=== PATIENT | male | born 1995 | race Caucasian/White ===

== ENCOUNTER 2021-02-28 16:54 | Emergency (ER) | payer OTHER ==
[2021-02-28 18:34] LABS: BASOPHIL 0.2 % (0-2); EOSINOPHIL 1.6 % (0-5); HCT 39.5 % (42.0-52.0); HGB 13.7 g/dl (13.2-18.0); LYMPHOCYTE 26.3 % (15-48); MCH 30.7 pg (25.0-31.0); MCHC 34.7 g/dL (32.0-36.0); MCV 88.6 fL (78.0-100.0); MONOCYTE 6.4 % (0-12); MPV 9.4 fL (6.0-9.5); NEUTROPHIL 65.2 % (41-80); NRBC 0; PLT 326 K/uL (150-400); RBC 4.46 M/uL (4.70-6.00); RDW 12.4 % (11.5-14.0); WBC 9.1 K/uL (4.0-10.5)
[2021-02-28 18:44] LABS: INR 1.07 (0.9-1.2); PROTHROMBIN TIME 13.2 SECONDS (11.4-13.6); PTT 31.2 SECONDS (22.2-34.7)
[2021-02-28 18:45] LABS: D-DIMER 2.22 ug/mLFEU (0.00-0.41)
[2021-02-28 18:54] LABS: ALBUMIN 3.5 g/dL (3.4-5.0); BILIRUBIN - TOTAL 0.4 mg/dL (0.2-1.0); BUN/CREAT RATIO (CALC) 11.6 RATIO; CREATININE 0.69 mg/dL (0.67-1.17); GLOBULIN (CALCULATION) 4.8 g/dL; IRON % SATURATION 39.9 %SAT (20-50); MAGNESIUM 2.1 mg/dL (1.8-2.4); POTASSIUM 3.7 mmol/L (3.5-5.1); TOTAL PROTEIN 8.3 g/dL (6.4-8.2)
[2021-02-28 19:00] LABS: PRO-BNP 98 pg/mL (<125)
[2021-02-28 20:07] LABS: BILIRUBIN NEGATIVE (NEGATIVE); BLOOD NEGATIVE Ery/uL (NEGATIVE); CLARITY CLEAR (CLEAR); COLOR YELLOW (YELLOW); GLUCOSE (U) NORMAL (NORMAL); LEUKOCYTES NEGATIVE Leu/uL (NEGATIVE); NITRITE NEGATIVE (NEGATIVE); PROTEIN NEGATIVE (NEGATIVE); UROBILINOGEN 0.2 mg/dL (0.2-1.0)
[2021-02-28 20:10] LABS: AMPHETAMINES POSITIVE (NEGATIVE); BARBITURATES NEGATIVE (NEGATIVE); ECSTASY (MDMA) NEGATIVE (NEGATIVE); MARIJUANA (THC) NEGATIVE (NEGATIVE); METHADONE NEGATIVE (NEGATIVE); OPIATES NEGATIVE (NEGATIVE)
[2021-02-28 20:11] LABS: OXYCODONE NEGATIVE (NEGATIVE)
[2021-02-28] MEDS ORDERED: AMOXICILLIN500 MG PO (20:55)
[2021-02-28] MEDS ORDERED: PEPCID AC20 MG PO (20:55)
== END 2021-02-28 21:00 | disposition home or self-care (01) ==
LOC: FER 16:54
PROVIDERS: Emergency Medicine
DX: R07.89 Other chest pain (principal); K02.9 Dental caries, unspecified; R12 Heartburn; M25.50 Pain in unspecified joint; R11.2 Nausea with vomiting, unspecified; R05 Cough; J45.909 Unspecified asthma, uncomplicated; F17.210 Nicotine dependence, cigarettes, uncomplicated
CPT/HCPCS: 36415; 71275; 80053; 80305; 81003; 82550; 83540; 83550; 83735; 83880; 84145; 84484; 85025; 85379; 85610; 85730; 86140; 87040; 93005; J7030; Q9967